=== PATIENT | female | born 1930 | race Caucasian/White ===

== ENCOUNTER 2016-09-11 12:14 | Inpatient (IN) | payer OTHER ==
[2016-09-11 08:38] LABS: INR 1.02 (0.9-1.2)
[2016-09-11 11:30] LABS: BILIRUBIN NEGATIVE (NEGATIVE); BLOOD TRACE-INTACT Ery/uL (NEGATIVE); CLARITY CLEAR (CLEAR); COLOR YELLOW (YELLOW); GLUCOSE (U) NORMAL (NORMAL); KETONE (U) NEGATIVE (NEGATIVE); LEUKOCYTES NEGATIVE Leu/uL (NEGATIVE); NITRITE NEGATIVE (NEGATIVE); PROTEIN NEGATIVE (NEGATIVE); UROBILINOGEN 0.2 mg/dL (0.2-1.0)
[2016-09-12 05:09] LABS: HCT 31.3 % (37.0-47.0); MCH 28.3 pg (25.0-31.0); MCHC 31.9 g/dL (32.0-36.0); MCV 88.7 fL (78.0-100.0); MPV 9.6 fL (6.0-9.5); RBC 3.53 M/uL (4.20-5.40); RDW 16.8 % (11.5-14.0)
[2016-09-12 05:17] LABS: INR 1.17 (0.9-1.2); PROTHROMBIN TIME 14.5 SECONDS (11.7-14.0)
[2016-09-12 05:24] LABS: CREATININE 0.7 mg/dL (0.5-1.0); POTASSIUM 4.9 mmol/L (3.5-5.1)
[2016-09-13 05:40] LABS: HGB 9.2 g/dl (12.5-16.0); MCH 28.6 pg (25.0-31.0); MCHC 32.9 g/dL (32.0-36.0); MPV 10.2 fL (6.0-9.5); RBC 3.22 M/uL (4.20-5.40); RDW 16.6 % (11.5-14.0); WBC 4.4 K/uL (4.0-10.5)
[2016-09-13 05:57] LABS: CREATININE 0.7 mg/dL (0.5-1.0); POTASSIUM 4.2 mmol/L (3.5-5.1)
[2016-09-13 09:20] LABS: INR 1.38 (0.9-1.2); PROTHROMBIN TIME 16.5 SECONDS (11.7-14.0)
[2016-09-14 05:04] LABS: HCT 27.9 % (37.0-47.0); HGB 9.3 g/dl (12.5-16.0); MCH 28.8 pg (25.0-31.0); MCHC 33.3 g/dL (32.0-36.0); MCV 86.4 fL (78.0-100.0); MPV 9.5 fL (6.0-9.5); RBC 3.23 M/uL (4.20-5.40); RDW 16.6 % (11.5-14.0); WBC 4.1 K/uL (4.0-10.5)
[2016-09-14 05:17] LABS: INR 1.41 (0.9-1.2); PROTHROMBIN TIME 16.8 SECONDS (11.7-14.0)
[2016-09-14 05:21] LABS: CREATININE 0.8 mg/dL (0.5-1.0); POTASSIUM 4.3 mmol/L (3.5-5.1)
[2016-09-14] MEDS ORDERED: PERCOCET 5/3251 TAB PO (12:04)
[2016-09-14] MEDS ORDERED: COZAAR50 MG PO (12:05)
[2016-09-14] MEDS ORDERED: COUMADIN3 MG PO (12:05)
[2016-09-14] MEDS ORDERED: BYSTOLIC5 MG PO (12:05)
[2016-09-14] MEDS ORDERED: CELEBREX **OUT100 MG PO (12:05)
[2016-09-14] MEDS ORDERED: AMBIEN5 MG PO (12:05)
[2016-09-14] MEDS ORDERED: FEOSOL325 MG PO (12:06)
[2016-09-14] MEDS ORDERED: SYNTHROID88 MCG PO (12:06)
[2016-09-14] MEDS ORDERED: LOVENOX40 MG/0.4 SC (12:06)
== END 2016-09-14 14:57 | DRG 470 ==
LOC: FMS 12:14
PROVIDERS: Internal Medicine; Nurse Practitioner Adult Health; ADMIT Legal Medicine
PROC: 8E0YXBZ Computer Assisted Procedure of Lower Extremity (ICD-10-PCS; 2016-09-11)
PROC: 0SRD0J9 Replacement of Left Knee Joint with Synthetic Substitute, Cemented, Open Approach (ICD-10-PCS; principal; 2016-09-11 10:00)
DX: M17.12 Unilateral primary osteoarthritis, left knee (principal); I48.2 Chronic atrial fibrillation; E87.1 Hypo-osmolality and hyponatremia; D62 Acute posthemorrhagic anemia; M21.162 Varus deformity, not elsewhere classified, left knee; I10 Essential (primary) hypertension; Z79.01 Long term (current) use of anticoagulants; K21.9 Gastro-esophageal reflux disease without esophagitis; E78.5 Hyperlipidemia, unspecified; E03.9 Hypothyroidism, unspecified; I25.10 Atherosclerotic heart disease of native coronary artery without angina pectoris; Z85.828 Personal history of other malignant neoplasm of skin; Z88.2 Allergy status to sulfonamides; Z83.3 Family history of diabetes mellitus; Z82.49 Family history of ischemic heart disease and other diseases of the circulatory system; Z80.9 Family history of malignant neoplasm, unspecified; Z88.0 Allergy status to penicillin; Z88.8 Allergy status to other drugs, medicaments and biological substances
CPT/HCPCS: 36415; 73560; 80048; 81003; 83930; 83935; 85610; 86850; 86900; 86901; 88305; 88311; 94010; 94762; 97110; 97116; 97163; 97166; 97530-GP; 97535; C1766; C1776; J0131; J1885; J2270; J2274; J2405; J2704; J2795; J2916; J3010